=== PATIENT | male | born 1985 | race Two or more races ===

== ENCOUNTER 2018-01-05 13:41 | Emergency (ER) | payer SELFPAY ==
[2018-01-05 14:40] LABS: ADD MAN DIFF? NO
[2018-01-05 14:43] LABS: BASO % 0 % (0-3); EOS % 0 % (0-3); HEMATOCRIT 43.9 % (39.0-53.0); HEMOGLOBIN 15.5 g/dL (13.0-17.5); LYMPH # 1.4 x10^3/uL (1.0-4.8); LYMPH % 19 % (24-48); MEAN CORPUSCULAR HEMOGLOBIN 30 pg (25-35); MEAN CORPUSCULAR HGB CONC 35 g/dL (31-37); MEAN CORPUSCULAR VOLUME 85 fL (79-100); MONO # 0.6 x10^3/uL (0.0-1.1); MONO % 8 % (0-9); NEUT # 5.3 x10^3uL (1.8-7.7); NEUT % 73 % (31-73); PLATELET COUNT 151 x10^3/uL (140-400); RED BLOOD COUNT 5.17 x10^6/uL (4.30-5.70); RED CELL DISTRIBUTION WIDTH 12.1 % (11.5-14.5); WHITE BLOOD COUNT 7.3 x10^3/uL (4.0-11.0)
[2018-01-05 14:51] LABS: ANION GAP 11 (6-14); BLOOD UREA NITROGEN 22 mg/dL (8-26); BUN/CREATININE RATIO 20 (6-20); CALCIUM 8.8 mg/dL (8.5-10.1); CARBON DIOXIDE 28 mmol/L (21-32); CHLORIDE 103 mmol/L (98-107); CREATININE 1.1 mg/dL (0.7-1.3); GFR 76.6; GLUCOSE 126 mg/dL (70-99); POTASSIUM 3.7 mmol/L (3.5-5.1); PROTHROMBIN TIME PATIENT 12.9 SEC (11.7-14.0); SODIUM 142 mmol/L (136-145)
[2018-01-05] MEDS: ASPIRIN CHEWABLE 81 MG TABLET. PO (14:54)
[2018-01-05] MEDS: IV NORMAL SALINE 1000ML BAG 1,000 ML IV (14:54)
[2018-01-05 14:57] LABS: ALBUMIN 4.2 g/dL (3.4-5.0); ALBUMIN/GLOBULIN RATIO 1.1 (1.0-1.7); ALK PHOS 100 U/L (46-116); ALT (SGPT) 26 U/L (16-63); AST (SGOT) 16 U/L (15-37); TOTAL BILIRUBIN 0.5 mg/dL (0.2-1.0); TOTAL PROTEIN 7.9 g/dL (6.4-8.2)
[2018-01-05 15:03] LABS: NT-PRO BNP 6 pg/mL (0-124)
[2018-01-05 16:09] LABS: TROPONINI < 0.017 ng/mL (0.000-0.055)
== END 2018-01-05 17:53 | disposition home or self-care (01) ==
LOC: ER 13:41
DX: R07.89 Other chest pain (principal); R42 Dizziness and giddiness; E89.0 Postprocedural hypothyroidism
CPT/HCPCS: 36415; 71045; 80053; 83880; 84484; 85025; 85610; 93005; 99285-25; J7030